=== PATIENT | male | born 1985 | race Caucasian/White ===

== ENCOUNTER 2022-06-01 10:08 | Emergency (ER) | payer OTHER ==
[~2022-06-01] VITALS: Ht 177.8 cm; Wt 108.9 kg
[2022-06-01] MEDS ORDERED: Amoxicillin875 MG PO (11:35)
== END 2022-06-01 11:30 | disposition home or self-care (01) ==
LOC: ER 10:08
DX: S01.411A Laceration without foreign body of right cheek and temporomandibular area, initial encounter (principal); W01.0XXA Fall on same level from slipping, tripping and stumbling without subsequent striking against object, initial encounter; I10 Essential (primary) hypertension; E11.9 Type 2 diabetes mellitus without complications; F17.210 Nicotine dependence, cigarettes, uncomplicated
CPT/HCPCS: 90714; A9270